=== PATIENT | female | born 1995 | race Caucasian/White ===

== ENCOUNTER 2016-09-04 20:15 | Emergency (ER) | payer OTHER ==
[2016-09-04 20:29] VITALS: TEMP 99.3
[2016-09-04] MEDS ORDERED: NS 1,000 ML IV ONE (20:47)
--- NOTE | 2016-09-04 20:50 | EDPHY ---
H & P Stated Complaint: HEAVY BLEEDING DUE TO OVARIAN CYST MEDICATIONS, CRAMPS ABD PAIN Time Seen by Provider: 09/04/16 20:41 HPI/ROS: CHIEF COMPLAINT: Vaginal bleeding HISTORY OF PRESENT ILLNESS: The patient is a 21-year-old female who complains of vaginal bleeding and cramping for the last 16 days. She states that 3 and half weeks ago she was diagnosed by her OBGYN doctor Kayleen Pimentel at [facility] with a left ovarian cyst. She was started Reclipsen control tablets. About a week into the prescription she began bleeding and has been bleeding ever since. She states that for the last 3-4 days it has been more heavy. She states that today she gets fatigue easily when walking up a hill. She denies shortness of breath or lightheadedness. She denies fevers. She denies risk of . REVIEW OF SYSTEMS: Constitutional: denies: chills, fever, recent illness, recent injury EENTM: denies: blurred vision, double vision, nose congestion Respiratory: denies: cough, shortness of breath Cardiac: denies: chest pain, irregular heart rate, lightheadedness, palpitations Gastrointestinal/Abdominal: denies: abdominal pain, diarrhea, nausea, vomiting, blood streaked stools Genitourinary: See HPI Musculoskeletal: denies: joint pain, muscle pain Skin: denies: lesions, rash, jaundice, bruising Neurological: denies: headache, numbness, paresthesia, tingling, dizziness, weakness Hematologic/Lymphatic: denies: blood clots, easy bleeding, easy bruising Immunologic/allergic: denies: HIV/AIDS, transplant EXAM: GENERAL: Well-appearing, well-nourished and in no acute distress. HEAD: Atraumatic, normocephalic. EYES: Pupils equal round and reactive to light, extraocular movements intact, sclera anicteric, conjunctiva are normal. ENT: TMs normal, nares patent, oropharynx clear without exudates. Moist mucous membranes. NECK: Normal range of motion, supple without lymphadenopathy or JVD. LUNGS: Breath sounds clear to auscultation bilaterally and equal. No wheezes rales or rhonchi. HEART: Regular rate and rhythm without murmurs, rubs or gallops. ABDOMEN: Soft, nontender, normoactive bowel sounds. No guarding, no rebound. No masses appreciated. BACK: No CVA tenderness, no spinal tenderness, step-offs or deformities EXTREMITIES: Normal range of motion, no pitting or edema. No clubbing or cyanosis. NEUROLOGICAL: Cranial nerves II through XII grossly intact. Normal speech, normal gait. 5/5 strength, normal movement in all extremities, normal sensation PSYCH: Normal mood, normal affect. SKIN: Warm, dry, normal turgor, no visible rashes or lesions. Source: Patient Exam Limitations: No limitations - Personal History LMP (Females 10-55): Now Current Tetanus/Diphtheria Vaccine: Yes Current Tetanus Diphtheria and Acellular Pertussis (TDAP): Yes - Medical/Surgical History Hx Asthma: No Hx Chronic Respiratory Disease: No Hx Diabetes: No Hx Cardiac Disease: No Hx Renal Disease: No Hx Cirrhosis: No Hx Alcoholism: No Hx HIV/AIDS: No Hx Splenectomy or Spleen Trauma: No Other PMH: OVARIAN CYST, - Family History Significant Family History: No pertinent family hx - Social History Smoking Status: Never smoked Alcohol Use: None Drug Use: None Constitutional: Initial Vital Signs Temperature (C) 37.4 C 09/04/16 20:25 Heart Rate 67 09/04/16 20:25 Respiratory Rate 18 09/04/16 20:25 Blood Pressure 135/79 H 09/04/16 20:25 O2 Sat (%) 97 09/04/16 20:25 O2 Delivery Mode Room Air Allergies/Adverse Reactions: No Known Allergies Allergy (Unverified 09/04/16 20:28) Home Medications: Medication Instructions Recorded Desogestrel-Ethinyl Estradiol 09/04/16 [Reclipsen 28 Day Tablet] Medical Decision Making ED Course/Re-evaluation: 10:05 p.m. we discussed the patient's lab work which is reassuring. I recommended a pelvic exam but she declines. No obvious history of trauma or infection. I also offered to page her OBGYN for recommendations and she declines. She states that she will call them in the morning. She is ambulating without difficulty. She is alert and cutting eating well. She has normal vital signs. No significant bleeding externally. Discussed indications for returning. Differential Diagnosis: Partial list of the Differential diagnosis considered include but were not limited to; dysfunctional uterine bleeding, ovarian cyst, and although unlikely based on the history and physical exam, I also considered vaginal trauma, infection, ectopic. I discussed these differential diagnoses and the plan with the patient as well as the usual and expected course. The patient understands that the diagnosis is provisional and that in medicine we are not always correct and that further workup is often warranted. Usual and customary warnings were given. All of the patient's questions were answered. The patient was instructed to return to the emergency department should the symptoms at all worsen or return, otherwise to followup with the physician as we discussed. - Data Points Laboratory Results: Laboratory Results 09/04/16 21:02 09/04/16 21:02 09/04/16 09/04/16 09/04/16 21:02 21:02 21:02 WBC 5.01 10^3/uL 10^3/uL (3.80-9.50) RBC 3.85 10^6/uL L 10^6/uL (4.18-5.33) Hgb 12.4 g/dL L g/dL (12.6-16.3) Hct 35.7 % L % (38.0-47.0) MCV 92.7 fL fL (81.5-99.8) MCH 32.2 pg pg (27.9-34.1) MCHC 34.7 g/dL g/dL (32.4-36.7) RDW 11.8 % % (11.5-15.2) Plt Count 169 10^3/uL 10^3/uL (150-400) MPV 11.4 fL fL (8.7-11.7) Neut % (Auto) 62.5 % % (39.3-74.2) Lymph % (Auto) 28.9 % % (15.0-45.0) [place] % (Auto) 7.2 % % (4.5-13.0) Eos % (Auto) 0.6 % % (0.6-7.6) Baso % (Auto) 0.6 % % (0.3-1.7) Nucleat RBC Rel Count 0.0 % % (0.0-0.2) Absolute Neuts (auto) 3.13 10^3/uL 10^3/uL (1.70-6.50) Absolute Lymphs (auto) 1.45 10^3/uL 10^3/uL (1.00-3.00) Absolute Monos (auto) 0.36 10^3/uL 10^3/uL (0.30-0.80) Absolute Eos (auto) 0.03 10^3/uL 10^3/uL (0.03-0.40) Absolute Basos (auto) 0.03 10^3/uL 10^3/uL (0.02-0.10) Absolute Nucleated RBC 0.00 10^3/uL 10^3/uL (0-0.01) Immature Gran % 0.2 % % (0.0-1.1) Immature Gran # 0.01 10^3/uL 10^3/uL (0.00-0.10) Sodium 138 mEq/L mEq/L (134-144) Potassium 3.8 mEq/L mEq/L (3.5-5.2) Chloride 105 mEq/L mEq/L (97-110) Carbon Dioxide 24 mEq/l mEq/l (22-31) Anion Gap 9 mEq/L mEq/L (8-16) BUN 18 mg/dL mg/dL (7-23) Creatinine 0.9 mg/dL mg/dL (0.6-1.0) Estimated GFR > 60 Glucose 101 mg/dL H mg/dL (70-100) Calcium 9.2 mg/dL mg/dL (8.5-10.4) Beta HCG, Qual NEGATIVE Medications Given: Discontinued Medications Sodium Chloride (Ns) 1,000 mls @ 0 mls/hr IV ONCE ONE PRN Reason: Wide Open Stop: 09/04/16 20:48 Last Admin: 09/04/16 21:05 Dose: 1,000 mls Departure - Departure Disposition: Home, Routine, Self-Care Clinical Impression: Vaginal bleeding Condition: Fair Instructions: Dysfunctional Uterine Bleeding (ED) Referrals: NONE *PRIMARY CARE P,. [Primary Care Provider] - As per Instructions (Dr. Pimentel)
[2016-09-04 21:21] LABS: ANION GAP 9 mEq/L (8-16); CALCIUM 9.2 mg/dL (8.5-10.4); CARBON DIOXIDE 24 mEq/l (22-31); CHLORIDE 105 mEq/L (97-110); CREATININE 0.9 mg/dL (0.6-1.0); GLOMERULAR FILTRATION RATE > 60; GLUCOSE 101 mg/dL (70-100); POTASSIUM 3.8 mEq/L (3.5-5.2); SODIUM 138 mEq/L (134-144)
[2016-09-04 21:22] LABS: % IMMATURE GRANULYOCYTES 0.2 % (0.0-1.1); ABSOLUTE IMMATURE GRANULOCYTES 0.01 10^3/uL (0.00-0.10); ADD DIFF? NO; ADD MORPH? NO; ADD SCAN? NO; ATYPICAL LYMPHOCYTE FLAG 10 (0-99); FRAGMENT RBC FLAG 0 (0-99); HEMATOCRIT 35.7 % (38.0-47.0); HEMOGLOBIN 12.4 g/dL (12.6-16.3); LEFT SHIFT FLG 0 (0-99); LIPEMIA HEMOLYSIS FLAG 90 (0-99); MEAN CELL HEMOGLOBIN 32.2 pg (27.9-34.1); MEAN CELL HEMOGLOBIN CONCENTR. 34.7 g/dL (32.4-36.7); MEAN CELL VOLUME 92.7 fL (81.5-99.8); MEAN PLATELET VOLUME 11.4 fL (8.7-11.7); PLATELET CLUMPS FLAG 10 (0-99); PLATELET COUNT 169 10^3/uL (150-400); RED BLOOD CELL COUNT 3.85 10^6/uL (4.18-5.33); RED CELL DISTRIBUTION WIDTH 11.8 % (11.5-15.2)
[2016-09-04 22:29] VITALS: BP 122/87; PULSE 70; RESP 16; O2SAT 94
== END 2016-09-04 22:26 | disposition home or self-care (01) ==
DX: N93.9 Abnormal uterine and vaginal bleeding, unspecified (principal)